=== PATIENT | female | born 1965 | race Caucasian/White ===

== ENCOUNTER 2018-04-12 17:23 | Emergency (ER) | payer BC, MEDICARE ==
[2018-04-12 18:11] VITALS: BP 140/91
--- NOTE | 2018-04-12 18:52 | UC ---
Back Pain HPI - HPI Summary HPI Summary: PATIENT ARRIVES WITH PAPERWORK DOCUMENTING HER MULTIPLE BACK SURGERIES. PAPERWORK CONFIRMS SHE HAS BEEN ON NARCOTIC PAIN MANAGEMENT FOR SEVERAL YEARS. MOST RECENT NOTE FROM MARCH 2017. WAS FOLLOWED BY DR. GALLO IN [place] [employer] [place] UNTIL THAT POINT WHEN SHE MOVED TO [place] TO BE WITH HER MOTHER. PATIENT WAS BEING FOLLOWED BY DR. BHUPENDRA CHAMPION, PAIN MANAGEMENT IN [place] BUT DOES NOT HAVE PAPERWORK FROM HIS OFFICE. PT MADE A LAST MINUTE DECISION TO MOVE TO [place] ONE WEEK AGO AND SO WAS UNABLE TO SECURE HER PAPERWORK FROM [place] IN TIME TO MAKE THE MOVE. PT'S CHILDREN ARE HERE AND HER GOT A JOB HERE. SHE SAW DR. DELANEY AT [facility] YESTERDAY AND WAS HOPING TO HAVE HER PAIN MEDICATIONS EXTENDED BY HIM UNTIL SHE COULD BE ESTABLISHED WITH PAIN MANAGEMENT HERE HOWEVER HE ENDED UP LEAVING THE OFFICE PRIOR TO RECEIVING ANY PAPERWORK FROM [place] TO CONFIRM HER CURRENT PRESCRIPTIONS. SHE CALLED THE OFFICE TODAY AND WAS INFORMED THAT HE WAS OUT OF THE OFFICE UNTIL NEXT WEEK. SHE HAS AN APPOINTMENT WITH [facility] ON SUNDAY AND IS LOOKING FOR MEDICATION TO CARRY HER THROUGH THE WEEKEND UNTIL SHE CAN BE SEEN. PT HAS A BOTTLE OF HYDROCODONE/APAP 10/[address] CHAMPION. 3 TABS LEFT. - History of Current Complaint Chief Complaint: UCBackPain Stated Complaint: neck and back pain Time Seen by Provider: 04/12/18 18:12 Hx Obtained From: Patient, Family/Sponge Buffer - Onset/Duration: Still Present Timing: Constant Severity Initially: Moderate Severity Currently: Moderate Pain Intensity: 7 Pain Scale Used: 0-10 Numeric Back Pain: Is Diffuse Character: Sharp, Spasmodic Aggravating Factor(s): Movement Alleviating Factor(s): Rest, Position Associated Signs And Symptoms: Positive: Tingling. Negative: Swelling - Allergies/Home Medications Allergies/Adverse Reactions: Allergies Allergy/AdvReac Type Severity Reaction Status Date / Time Sulfa (Sulfonamide Allergy See Comment Verified 04/12/18 17:50 Antibiotics) Home Medications: Home Medications ALPRAZolam TAB* [Xanax TAB*] 2 mg PO DAILY 04/12/18 [History Confirmed 04/12/18] Amitriptyline TAB* [Elavil TAB*] 25 mg PO BEDTIME 04/12/18 [History Confirmed ] Escitalopram Oxalate [Lexapro 20 mg] 20 mg PO DAILY 04/12/18 [History Confirmed 04/12/18] Famotidine TAB* [Pepcid 20 MG TAB*] 40 mg PO DAILY 04/12/18 [History Confirmed 04/12/18] Levothyroxine TAB* [Synthroid 88 MCG TAB*] 88 mcg PO DAILY 04/12/18 [History Confirmed 04/12/18] Methocarbamol TAB* [Robaxin 500 MG TAB*] 750 mg PO BID 04/12/18 [History Confirmed 04/12/18] Omeprazole CAP* [Prilosec CAP* 20 MG] 20 mg PO DAILY 04/12/18 [History Confirmed 04/12/18] Simvastatin 20 mg PO DAILY 04/12/18 [History Confirmed 04/12/18] glipiZIDE TAB* [Glucotrol TAB*] 5 mg PO DAILY 04/12/18 [History Confirmed ] metFORMIN* [Glucophage 1000 MG TAB *] 1,000 mg PO BID 04/12/18 [History Confirmed 04/12/18] PMH/Surg Hx/FS Hx/Imm Hx - Additional Past Medical History Additional PMH: CHRONIC BACK/NECK PAIN, FIBROMYALGIA Endocrine History: Diabetes, Hypothyroidism, Dyslipidemia Cardiovascular History: Hypertension GI/ History: Gastroesophageal Reflux - Surgical History Surgical History: Yes Surgery Procedure, Year, and Place: neck surgery c5-c6 dissectomy with fusion - 2014. hysterectomy 2003. 2 c-sections. L carpal tunnel/ wrist repair. lamectomy with instrumentation L4-L5 2016 - Social History Alcohol Use: Rare Substance Use Type: Prescribed Smoking Status (MU): Light Every Day Tobacco Smoker Amount Used/How Often: 2 cig/ day Review of Systems Constitutional: Negative Skin: Negative Respiratory: Negative Cardiovascular: Negative Gastrointestinal: Negative Musculoskeletal: Decreased ROM, Myalgia All Other Systems Reviewed And Are Negative: Yes Physical Exam Triage Information Reviewed: Yes Appearance: Well-Nourished, Pain Distress - moderate Vital Signs: Initial Vital Signs Temp 97.3 F 04/12/18 17:59 Pulse 106 04/12/18 17:59 Resp 18 04/12/18 17:59 BP 140/91 04/12/18 17:59 Pulse Ox 100 04/12/18 17:59 Vital Signs Reviewed: Yes Eyes: Positive: Conjunctiva Clear ENT: Positive: Hearing grossly normal, Pharynx normal, TMs normal Neck: Positive: Supple, Nontender, No Lymphadenopathy Respiratory Exam: Normal Cardiovascular Exam: Normal Abdomen Description: Positive: Soft Musculoskeletal: Positive: No Edema, ROM Limited @ - back, neck Neurological: Positive: Alert, Muscle Tone Normal, Other: - POS STRAIGHT LEG RAISE LEFT. NO SIGNS OF MENINGISMUS Psychological: Positive: Normal Response To Family, Age Appropriate Behavior Skin: Negative: rashes Back Pain Course/Dx - Course Course Of Treatment: PT ARRIVES WITH REASONABLE STORY AND DOCUMENTATION FOR CHRONIC PAIN MANAGEMENT. WILL GIVE TORADOL INJECTION AND RX FOR LORTAB TO CARRY HER THROUGH THE WEEKEND UNTIL SHE CAN FOLLOW-UP WITH HER NEW PCP AND ORTHO. - Differential Dx/Diagnosis Provider Diagnoses: CHRONIC PAIN Discharge - Sign-Out/Discharge Documenting (check all that apply): Discharge/Admit/Transfer - Discharge Plan Condition: Stable Disposition: HOME Prescriptions: Hydrocodone/Acetaminophen [Hydrocodone/Acetaminophen 10-325 mg] 1 tab PO TID PRN #12 tab MDD 3 PRN Reason: Pain Patient Education Materials: Chronic Back Pain (ED) Referrals: Fredy Delaney DO [Primary Care Provider] - 3 Days Additional Instructions: KEEP YOUR FOLLOW-UP APPOINTMENT WITH ORTHOPEDICS ON SUNDAY. CALL DR. DELANEY'S OFFICE FIRST THING SUNDAY MORNING TO DISCUSS CONTINUING PAIN MANAGEMENT UNTIL YOU ARE ESTABLISHED WITH THE PAIN CLINIC. YOU RECEIVED A SHOT OF TORADOL TODAY AND A SHORT COURSE OF LORTAB TO GET YOU THROUGH THE WEEKEND. - Billing Disposition and Condition Condition: STABLE Disposition: HOME
[2018-04-12] MEDS ORDERED: Ketorolac INJ* 60 MG/2 ML VIAL IM ONE (19:15)
== END 2018-04-12 19:10 | disposition home or self-care (01) ==
LOC: UCEAST 17:23
DX: G89.29 Other chronic pain (principal); Z88.2 Allergy status to sulfonamides; E11.9 Type 2 diabetes mellitus without complications; Z79.84 Long term (current) use of oral hypoglycemic drugs; E03.9 Hypothyroidism, unspecified; K21.9 Gastro-esophageal reflux disease without esophagitis; M79.7 Fibromyalgia; E78.5 Hyperlipidemia, unspecified; F17.210 Nicotine dependence, cigarettes, uncomplicated
CPT/HCPCS: 96372; 99201; G0463; J1885